=== PATIENT | female | born 1990 | race Caucasian/White ===

== ENCOUNTER 2017-10-01 22:40 | Emergency (ER) | payer OTHER ==
[~2017-10-01] VITALS: Ht 160 cm; Wt 74.0 kg
[~2017-10-01 22:40] MED LIST: MACR100C PO; SERO300T PO
[2017-10-01 22:42] VITALS: BP 135/74; PULSE 85; RESP 16; TEMP 98.8; O2SAT 100
--- NOTE | 2017-10-02 00:05 | PD ---
HPI Chief Complaint: Headache Time Seen by Provider: 23:56 Travel History International Travel<30 days: No Contact w/Intl Traveler<30days: No Traveled to known affect area: No History of Present Illness HPI The patient is a 27 year old female who presents to the [facility] emergency department with a history of a headache that began 2 months ago. It has been constant. It is located in the back of her head. It is a burning sensation. It waxes and wanes in severity. She denies any alleviating factors. She reports that it randomly seems to get worse at times It is randomly worse. She denies taking any pain medication on a regular basis and she reports that Tylenol and ibuprofen does not usually help for her pain. She reports that she has not been sleeping well recently. She denies having any other new recent stress. She denies having any recent fevers, cough, congestion , rhinorrhea, or sore throat. She denies having any one-sided weakness, slurred speech, dizziness, difficulty with word finding ability, or vision changes. She reports having nausea with the headache without vomiting. She reports that the headache has been making her agitated, quick to anger. The patient reports that the headache has now moved down into her upper neck. She denies having any neck stiffness associated with this. On review of systems, she denies having any chest pain, shortness of breath, new abdominal pain, diarrhea, urinary symptoms, or other neurologic symptoms. LMP: September 04. [facility] Past Medical History Narrative Medical The patient's past medical history is significant for scoliosis, bipolar disorder, pilonidal cyst drainage a month ago, kidney stones, chronic abdominal pain that she reports has been evaluated previously and diagnosed as related to stomach ulcers. Bipolar Disorder: Yes Depression: Yes Diminished Hearing: No Kidney Stones: Yes Musculoskeletal: Yes (SCOLIOSIS) Tetanus Vaccination: < 5 Years Influenza Vaccination: No ?: Not LMP: "TUBES TIED" - 09/04/17 : 1 Past Surgical History Narrative Surgical The patient's past surgical history is significant for left renal stent placed and removed, lithotripsy, x2. Section: Yes (08/26/13) Other Surgery: Yes (LEFT RENAL STENT X2/REMOVAL, LITHOTRIPSY) Social History Alcohol Use: Yes (RARE, NONE SINCE 11/25/13) Tobacco Use: No Substance Use: No Allergies-Medications (Allergen,Severity, Reaction): Coded Allergies: lurasidone (Verified Allergy, Unknown, 10/01/17) quetiapine (Verified Allergy, Unknown, 10/01/17) trazodone (Verified Allergy, Unknown, 10/01/17) ziprasidone (Verified Allergy, Unknown, 10/01/17) Reported Meds & Prescriptions Reported Meds & Active Scripts Active No Active Prescriptions or Reported Medications Review of Systems Except as stated in HPI: all other systems reviewed are Neg General / Constitutional: No: Fever Eyes: No: Visual changes HENT: Positive: Headaches, Neck Pain, No: Neck Stiffness Cardiovascular: No: Chest Pain or Discomfort Respiratory: No: Shortness of Breath Gastrointestinal: Positive: Nausea, No: Abdominal Pain Genitourinary: No: Dysuria Musculoskeletal: No: Pain Skin: No Rash Neurologic: Positive: Headache, No: Weakness, Focal Abnormalities, Change in Mentation, Slurred Speech, Sensory Disturbance Psychiatric: No: Depression Endocrine: No: Polydipsia Hematologic/Lymphatic: No: Easy Bruising Physical Exam Narrative General: The patient is a well-developed well-nourished female in no acute distress. Head and Neck exam: Head is normocephalic atraumatic. Eyes: EOMI, pupils are equal round and reactive to light. Ears: Tympanic membranes are pearly with a good cone of light, no erythema or exudate. Nose: Midline septum with pink mucous membranes Mouth: Dentition unremarkable. Moist mucus membranes. Posterior oropharynx is not erythematous. No tonsillar hypertrophy. Uvula midline. Airway patent. Neck: No palpable lymphadenopathy. No nuchal rigidity. No thyromegaly. Negative Brudzinski, negative Kernig sign. No spinous process tenderness to palpation. No step-off or crepitus. No erythema or ecchymosis. Cardiovascular: Regular rate and rhythm without murmurs, gallops, or rubs. Lungs: Clear to auscultation bilaterally. No wheezes, rhonchi, or rales. Abdomen: Soft, without tenderness to palpation in all 4 quadrants of the abdomen. No guarding, rebound, or rigidity. Normal bowel sounds are audible. No tenderness on palpation of McBurney's point. Extremities: No clubbing, cyanosis, or edema. 2+ pulses in all 4 extremities. No calf tenderness on palpation. Back: No spinous process tenderness to palpation. No costovertebral angle tenderness to palpation. Neurologic Exam: Grossly nonfocal. Skin Exam: No rash noted. Intact skin that is warm and dry. Data Data Last Documented VS Vital Signs Date Time Temp Pulse Resp B/P (MAP) Pulse Ox O2 Delivery O2 Flow Rate FiO2 10/02/17 00:43 18 100 Room Air 10/01/17 22:42 98.8 85 Orders Orders Complete Blood Count With Diff (10/02/17:09) Comprehensive Metabolic Panel (10/02/17 00:) C-Reactive Protein (Crp) (10/02/17 00:09) Lipase (10/02/17:) Magnesium (Mg) (10/02/17:) Thyroid Stimulating Hormone (10/02/17:09) Ct Brain W/O Iv Contrast(Rout) (10/02/17 00:09) Iv Access Insert/Monitor (10/02/17:) Ecg Monitoring (10/02/17:) Oximetry (10/02/17 00:09) Ed Urine Pregnancytest Poc (10/02/17 00:09) Sodium Chlor 0.9% 1000 Ml Inj (Ns 1000 M (10/02/17 00:15) Prochlorperazine Inj (Compazine Inj) (10/02/17 00:15) Ketorolac Inj (Toradol Inj) (10/02/17 00:15) Diphenhydramine Inj (Benadryl Inj) (10/02/17 00:15) Labs Laboratory Tests Test 10/02/17 00:05 White Blood Count 12.3 TH/MM3 Red Blood Count 4.53 MIL/MM3 Hemoglobin 12.9 GM/DL Hematocrit 39.5 % Mean Corpuscular Volume 87.2 FL Mean Corpuscular Hemoglobin 28.5 PG Mean Corpuscular Hemoglobin Concent 32.7 % Red Cell Distribution Width 15.6 % Platelet Count 287 TH/MM3 Mean Platelet Volume 9.4 FL Neutrophils (%) (Auto) 71.2 % Lymphocytes (%) (Auto) 21.5 % Monocytes (%) (Auto) 5.1 % Eosinophils (%) (Auto) 1.8 % Basophils (%) (Auto) 0.4 % Neutrophils # (Auto) 8.8 TH/MM3 Lymphocytes # (Auto) 2.6 TH/MM3 Monocytes # (Auto) 0.6 TH/MM3 Eosinophils # (Auto) 0.2 TH/MM3 Basophils # (Auto) 0.1 TH/MM3 CBC Comment DIFF FINAL Differential Comment Blood Urea Nitrogen 14 MG/DL Creatinine 0.65 MG/DL Random Glucose 117 MG/DL Total Protein 8.2 GM/DL Albumin 4.1 GM/DL Calcium Level 9.0 MG/DL Magnesium Level 2.1 MG/DL Alkaline Phosphatase 69 U/L Aspartate Amino Transf (AST/SGOT) 20 U/L Alanine Aminotransferase (ALT/SGPT) 35 U/L Total Bilirubin 0.4 MG/DL Sodium Level 140 MEQ/L Potassium Level 3.1 MEQ/L Chloride Level 107 MEQ/L Carbon Dioxide Level 23.5 MEQ/L Anion Gap 10 MEQ/L Estimat Glomerular Filtration Rate 109 ML/MIN C-Reactive Protein 0.59 MG/DL Lipase 172 U/L Thyroid Stimulating Hormone 3rd Gen 3.820 uIU/ML MDM Medical Decision Making Medical Screen Exam Complete: Yes Emergency Medical Condition: Yes Medical Record Reviewed: Yes Interpretation(s) Last Impressions Head CT 10/02/17 0009 Signed Impressions: Service Date/Time: Monday, October 02, 2017 00:55 - CONCLUSION: 1. No evidence of acute intracranial pathology. No masses are identified. Jhonny Caputo MD Differential Diagnosis Tension headache, versus migraine headache, versus intracranial hemorrhage, versus intracranial mass, versus meningitis, versus encephalitis Narrative Course During the course of the patients emergency department visit, the patients history, examination, and differential diagnosis were reviewed with the patient. The patient was placed on a playground monitor with oximetry and frequent blood pressure monitoring. The patient had IV access obtained and blood work sent for analysis. A CT scan of the brain has been ordered. Meningitis and encephalitis are unlikely as the patient is awake and alert with a GCS of 15 and has no nuchal rigidity on exam. The patient has also been afebrile. The patient was initially provided a cocktail for pain to include Toradol, Benadryl, Compazine, and a 1 L IV fluid bolus. The patients laboratory studies were reviewed and remarkable for a white count of 12.3, hemoglobin 12.9, platelets 2 8774.2 neutrophils, CMP is remarkable for potassium supplemented orally, glucose 1:15, C-reactive protein 0.59, lipase 72 , TSH 3.2. Radiology studies were reviewed and remarkable for a CT scan of the brain shows no evidence of acute intracranial abnormality. No masses are identified. The patient will be discharged home to follow-up with a local primary care physician. The patient was given a prescription for Fioricet patient's symptoms are most consistent with tension headache. The patient is instructed regarding the importance of getting at least 8 hours of sleep each night. The patient is resting comfortably and feels better, is alert and in no distress. The patients results and examination findings were discussed with the patient. The repeat examination is unremarkable and benign. The history, exam, diagnostic testing, and current condition do not suggest any significant pathology to warrant further testing, continued ED treatment, admission, or surgical evaluation at this point. The vital signs have been stable. The patient does not have uncontrollable pain, intractable vomiting, or other significant symptoms. The patient's condition is stable and appropriate for discharge. The patient will pursue further outpatient evaluation with a primary care physician or other designated or consulting physician as indicated in the discharge instructions. The patient expressed understanding and was agreeable with this plan. Diagnosis Primary Impression: Headache Qualified Codes: G44.229 - Chronic tension-type headache, not intractable Additional Impression: Elevated TSH Referrals: Gil Amado MD 2 days Patient Instructions: Acute Headache (ED), General Instructions, Hypothyroidism (ED) Additional Instructions: The patient was instructed regarding her elevated TSH. She was instructed to follow-up with a primary care physician for additional thyroid tests. She was given a copy of her TSH results. Med/Other Pt SpecificInfo: Prescription(s) given Scripts Mzejvrbgdr-Ndghsfuaxnagb-Qyoouuas (Fioricet) 50-300-40 Mg Cap 1 CAP PO Q6H Y for HEADACHE, #9 CAP 0 Refills Prov: Alicia Dorsey MD 10/02/17 Disposition: 01 DISCHARGE HOME Condition: Stable Alicia Dorsey MD Oct 02, 2017 00:05
[2017-10-02] MEDS ORDERED: SODIUM CHLOR 0.9% 1000 ML INJ 1,000 ML IV ONE (00:15)
[2017-10-02] MEDS ORDERED: KETOROLAC TROMETHAMINE 30 MG/ML (IVP) VIAL IV PUSH ONE (00:15)
[2017-10-02] MEDS ORDERED: diphenhydrAMINE HCL 50 MG/ML VIAL IV PUSH ONE (00:15)
[2017-10-02] MEDS ORDERED: PROCHLORPERAZINE INJ 10 MG/2 ML VIAL IV PUSH ONE (00:15)
[2017-10-02 00:40] LABS: AUTOMATED NEUTROPHIL # 8.8 TH/MM3 (1.8-7.7); BASOPHIL # 0.1 TH/MM3 (0-0.2); BASOPHIL % 0.4 % (0.0-2.0); EOSINOPHIL # 0.2 TH/MM3 (0-0.4); EOSINOPHIL % 1.8 % (0.0-4.0); HEMATOCRIT 39.5 % (35.0-46.0); HEMO FLAGS DIFF FINAL; LYMPH % 21.5 % (9.0-44.0); LYMPHOCYTE # 2.6 TH/MM3 (1.0-4.8); MEAN CELL VOLUME 87.2 FL (80.0-100.0); MEAN CORPUSCULAR HEMOGLOBIN 28.5 PG (27.0-34.0); MEAN CORPUSCULAR HGB CONC 32.7 % (32.0-36.0); MONO % 5.1 % (0.0-8.0); NEUT % 71.2 % (16.0-70.0); PLATELET COUNT 287 TH/MM3 (150-450); RED BLOOD COUNT 4.53 MIL/MM3 (4.00-5.30); RED CELL DISTRIBUTION WIDTH 15.6 % (11.6-17.2); WHITE BLOOD COUNT 12.3 TH/MM3 (4.0-11.0)
[2017-10-02 00:43] VITALS: RESP 18; O2SAT 100
[2017-10-02 01:11] LABS: ALT (GPT) 35 U/L (10-53); ANION GAP 10 MEQ/L (5-15); AST (GOT) 20 U/L (15-37); BICARBONATE 23.5 MEQ/L (21.0-32.0); BLOOD UREA NITROGEN 14 MG/DL (7-18); CHLORIDE 107 MEQ/L (98-107); GLOMERULAR FILTRATION RATE 109 ML/MIN (>89); MAGNESIUM 2.1 MG/DL (1.5-2.5); POTASSIUM 3.1 MEQ/L (3.5-5.1); SODIUM (NA) 140 MEQ/L (136-145)
--- NOTE | 2017-10-02 01:12 | RADRPT ---
EXAM DATE/TIME: 10/02/2017 00:55 [facility] COMPARISON: No previous studies available for comparison. INDICATIONS : Cephalgia for two months. RADIATION DOSE: 29.75 CTDIvol (mGy) MEDICAL HISTORY : None SURGICAL HISTORY : Tubal ligation. ENCOUNTER: Initial ACUITY: 2 months PAIN SCALE: 10/10 LOCATION: cranial TECHNIQUE: Multiple contiguous axial images were obtained of the head. Using automated exposure control and adj ustment of the mA and/or kV according to patient size, radiation dose was kept as low as reasonably a chievable to obtain optimal diagnostic quality images. DICOM format image data is available electro nically for review and comparison. FINDINGS: CEREBRUM: The ventricles are normal for age. No evidence of midline shift, mass lesion, hemorrhage or acute in farction. No extra-axial fluid collections are seen. POSTERIOR FOSSA: The cerebellum and brainstem are intact. The 4th ventricle is midline. The cerebellopontine angle i s unremarkable. EXTRACRANIAL: The visualized portion of the orbits is intact. SKULL: The calvaria is intact. No evidence of skull fracture. CONCLUSION: 1. No evidence of acute intracranial pathology. No masses are identified. Jhonny Caputo MD on October 02, 2017 at 1:10 Board Certified Radiologist. This report was verified electronically.
[2017-10-02 01:20] LABS: ALKALINE PHOSPHATASE 69 U/L (45-117); TOTAL BILIRUBIN ADULT 0.4 MG/DL (0.2-1.0)
[2017-10-02 01:30] VITALS: RESP 18
[2017-10-02] MEDS ORDERED: BUTA1CAP PO (02:28)
[2017-10-02] MEDS ORDERED: POTASSIUM CHLORIDE 20 MEQ CONTROLLED RELEASE TAB PO ONE (02:45)
== END 2017-10-02 03:25 | disposition home or self-care (01) ==
LOC: NEPE 22:40
DX: R51 Headache (principal); R11.0 Nausea; F31.9 Bipolar disorder, unspecified; F32.9 Major depressive disorder, single episode, unspecified; M41.9 Scoliosis, unspecified
CPT/HCPCS: 70450; 80053; 83690; 83735; 84443; 84703; 85025; 86140; 96361; 96374; 96375; 99285; J0780; J1200; J1885; J7030

== ENCOUNTER 2017-11-03 17:34 | Emergency (ER) | payer OTHER ==
[~2017-11-03] VITALS: Ht 160 cm; Wt 74.0 kg
[~2017-11-03 17:34] MED LIST changes: +BUTA1CAP PO; -MACR100C PO; -SERO300T PO
[2017-11-03 17:37] VITALS: BP 145/77; PULSE 93; RESP 22; TEMP 98.2; O2SAT 100
--- NOTE | 2017-11-03 18:29 | PD ---
HPI Chief Complaint: Abdominal Pain Time Seen by Provider: 17:54 Travel History International Travel<30 days: No Contact w/Intl Traveler<30days: No Traveled to known affect area: No History of Present Illness HPI The patient was seen and examined in the presence of the nurse. This patient complains of abdominal pain. Location is right upper quadrant. Severity is moderate. Duration is one month. It's intermittent. It's worse with eating. No alleviating factors. Denies fever. Has not had it evaluated. Rare alcohol use. PFSH Past Medical History Bipolar Disorder: Yes Depression: Yes Diminished Hearing: No Kidney Stones: Yes Musculoskeletal: Yes (SCOLIOSIS) ?: Not LMP: 10/05/17 : 1 Past Surgical History Section: Yes (08/26/13) Other Surgery: Yes (LEFT RENAL STENT X2/REMOVAL, LITHOTRIPSY) Social History Alcohol Use: Yes (RARE, NONE SINCE 11/25/13) Tobacco Use: No Substance Use: No Allergies-Medications (Allergen,Severity, Reaction): Coded Allergies: lurasidone (Verified Allergy, Unknown, 10/01/17) quetiapine (Verified Allergy, Unknown, 10/01/17) trazodone (Verified Allergy, Unknown, 10/01/17) ziprasidone (Verified Allergy, Unknown, 10/01/17) Reported Meds & Prescriptions Reported Meds & Active Scripts Active Fioricet (Xslankpett-Bcebxiygeuorb-Lypwwgiq) 50-300-40 Mg Cap 1 Cap PO Q6H PRN Review of Systems General / Constitutional: No: Fever Eyes: No: Visual changes HENT: No: Headaches Cardiovascular: No: Chest Pain or Discomfort Respiratory: No: Shortness of Breath Gastrointestinal: Positive: Nausea, Abdominal Pain Genitourinary: No: Dysuria Musculoskeletal: No: Pain Skin: No Rash Neurologic: No: Weakness Psychiatric: No: Depression Endocrine: No: Polydipsia Hematologic/Lymphatic: No: Easy Bruising Physical Exam Narrative GENERAL: Well-nourished, well-developed patient with abdominal pain. SKIN: Focused skin assessment reveals no rash and nodules. Skin is Warm and dry. HEAD: Atraumatic. Normocephalic. EYES: Pupils equal and round. No scleral icterus. No injection or drainage. ENT: No nasal bleeding or discharge. Mucous membranes pink and moist. NECK: Trachea midline. No JVD. CARDIOVASCULAR: Regular rate and rhythm. No murmur appreciated. RESPIRATORY: No accessory muscle use. Clear to auscultation. Breath sounds equal bilaterally. GASTROINTESTINAL: Abdomen soft, right upper quadrant is tender, nondistended. Hepatic and splenic margins not palpable. MUSCULOSKELETAL: No obvious deformities. No clubbing. No cyanosis. No edema. NEUROLOGICAL: Awake and alert. No obvious cranial nerve deficits. Motor grossly within normal limits. Normal speech. PSYCHIATRIC: Appropriate mood and affect; insight and judgment normal. Data Data Last Documented VS Vital Signs Date Time Temp Pulse Resp B/P (MAP) Pulse Ox O2 Delivery O2 Flow Rate FiO2 11/03/17 17:37 98.2 93 22 145/77 (99) 100 MDM Medical Decision Making Medical Screen Exam Complete: Yes Emergency Medical Condition: Yes Medical Record Reviewed: Yes Differential Diagnosis Cholecystitis, pancreatitis, biliary colic Narrative Course I have reviewed the patient's electronic medical record. Patient's been here for issues before Patient is right upper quadrant pain and tenderness suspicious for gallbladder disease. Abdominal pain workup has been ordered and will be checked out to the night physician Clinton Juares MD Nov 03, 2017 18:29
[2017-11-03] MEDS ORDERED: SODIUM CHLOR 0.9% 1000 ML INJ 1,000 ML IV SCH (18:30)
[2017-11-03] MEDS ORDERED: ONDANSETRON HCL 4 MG/2 ML VIAL IVP ONE (18:30)
[2017-11-03] MEDS ORDERED: SODIUM CHLORIDE 0.9% FLUSH 10 ML FLUSH IV FLUSH PRN (18:30)
[2017-11-03] MEDS ORDERED: MORPHINE SULFATE 4 MG/ML INJ IV PUSH ONE ×3 (18:30→22:30)
[2017-11-03 19:18] LABS: AUTOMATED NEUTROPHIL # 8.3 TH/MM3 (1.8-7.7); BASOPHIL % 0.2 % (0.0-2.0); EOSINOPHIL # 0.2 TH/MM3 (0-0.4); HEMATOCRIT 40.7 % (35.0-46.0); HEMO FLAGS DIFF FINAL; LYMPH % 14.7 % (9.0-44.0); LYMPHOCYTE # 1.5 TH/MM3 (1.0-4.8); MEAN CELL VOLUME 86.7 FL (80.0-100.0); MEAN CORPUSCULAR HEMOGLOBIN 29.3 PG (27.0-34.0); MEAN CORPUSCULAR HGB CONC 33.7 % (32.0-36.0); MONO % 3.8 % (0.0-8.0); NEUT % 79.3 % (16.0-70.0); PLATELET COUNT 293 TH/MM3 (150-450); RED BLOOD COUNT 4.69 MIL/MM3 (4.00-5.30); RED CELL DISTRIBUTION WIDTH 15.8 % (11.6-17.2); WHITE BLOOD COUNT 10.4 TH/MM3 (4.0-11.0)
[2017-11-03 19:32] LABS: APTT (PATIENT) 24.2 SEC (24.3-30.1); PROTHROMBIN TIME - PATIENT 10.3 SEC (9.8-11.6)
[2017-11-03] MEDS ORDERED: PROM25TA10 PO (19:44)
[2017-11-03] MEDS ORDERED: NORC5TAB PO (19:44)
--- NOTE | 2017-11-03 19:45 | PD ---
Physical Exam Date Seen by Provider: Nov 03, 2017 Narrative Care was assumed at 7 PM pending workup for right upper quadrant pain. GENERAL: Awake and alert and in no acute distress. SKIN: warm/dry. HEAD: Normocephalic. EYES: Pupils equal and round. No scleral icterus. No injection or drainage. ENT: No nasal bleeding or discharge. Mucous membranes pink and moist. NECK: Trachea midline. Full range of motion without pain.. CARDIOVASCULAR: Regular rate and rhythm. Heart sounds are normal. RESPIRATORY: No accessory muscle use. Clear to auscultation. Breath sounds equal bilaterally. GASTROINTESTINAL: Abdomen soft. Right upper quadrant tenderness. Bowel sounds present. Nondistended. MUSCULOSKELETAL: No obvious deformities. NEUROLOGICAL: Awake and alert. No obvious cranial nerve deficits. Motor grossly within normal limits. Normal speech. PSYCHIATRIC: Appropriate mood and affect; insight and judgment normal. Data Data Last Documented VS Vital Signs Date Time Temp Pulse Resp B/P (MAP) Pulse Ox O2 Delivery O2 Flow Rate FiO2 11/03/17 19:49 66 18 90/66 (74) 99 11/03/17 17:37 98.2 Orders Orders Beta Hcg (Quant/Titer) (11/03/17 18:30) Complete Blood Count With Diff (11/03/17 18:30) Comprehensive Metabolic Panel (11/03/17 18:30) Lipase (11/03/17 18:30) Prothrombin Time / Inr (Pt) (11/03/17 18:30) Act Partial Throm Time (Ptt) (11/03/17 18:30) Ct Abd/Pel W Iv Contrast(Rout) (11/03/17 18:30) Iv Access Insert/Monitor (11/03/17 18:30) Ecg Monitoring (11/03/17 18:30) NPO (11/03/17 18:30) Morphine Inj (Morphine Inj) (11/03/17 18:30) Ondansetron Inj (Zofran Inj) (11/03/17 18:30) Sodium Chlor 0.9% 1000 Ml Inj (Ns 1000 M (11/03/17 18:30) Sodium Chloride 0.9% Flush (Ns Flush) (11/03/17 18:30) Morphine Inj (Morphine Inj) (11/03/17 19:30) Iohexol 350 Inj (Omnipaque 350 Inj) (11/03/17 21:08) Labs Laboratory Tests Test 11/03/17 18:34 11/03/17 20:00 White Blood Count 10.4 TH/MM3 Red Blood Count 4.69 MIL/MM3 Hemoglobin 13.7 GM/DL Hematocrit 40.7 % Mean Corpuscular Volume 86.7 FL Mean Corpuscular Hemoglobin 29.3 PG Mean Corpuscular Hemoglobin Concent 33.7 % Red Cell Distribution Width 15.8 % Platelet Count 293 TH/MM3 Mean Platelet Volume 9.6 FL Neutrophils (%) (Auto) 79.3 % Lymphocytes (%) (Auto) 14.7 % Monocytes (%) (Auto) 3.8 % Eosinophils (%) (Auto) 2.0 % Basophils (%) (Auto) 0.2 % Neutrophils # (Auto) 8.3 TH/MM3 Lymphocytes # (Auto) 1.5 TH/MM3 Monocytes # (Auto) 0.4 TH/MM3 Eosinophils # (Auto) 0.2 TH/MM3 Basophils # (Auto) 0.0 TH/MM3 CBC Comment DIFF FINAL Differential Comment Prothrombin Time 10.3 SEC Prothromb Time International Ratio 1.0 RATIO Activated Partial Thromboplast Time 24.2 SEC Blood Urea Nitrogen 15 MG/DL Creatinine 0.59 MG/DL Random Glucose 92 MG/DL Total Protein 8.8 GM/DL Albumin 3.2 GM/DL Calcium Level 8.0 MG/DL Alkaline Phosphatase 80 U/L Aspartate Amino Transf (AST/SGOT) 13 U/L Alanine Aminotransferase (ALT/SGPT) 25 U/L Total Bilirubin 0.4 MG/DL Sodium Level 143 MEQ/L Potassium Level 3.9 MEQ/L Chloride Level 111 MEQ/L Carbon Dioxide Level 24.9 MEQ/L Anion Gap 7 MEQ/L Estimat Glomerular Filtration Rate 121 ML/MIN Lipase 152 U/L Human Chorionic Gonadotropin, Quant LESS THAN 1 MIU/ML MDM Supervised Visit with TONI: No Differential Diagnosis Differential diagnosis of abdominal pain includes but is not limited to gastritis, pancreatitis, hepatitis, gastroenteritis, gallbladder disease, constipation, urinary retention, UTI, peptic ulcer disease, diverticulitis or appendicitis Narrative Course This patient presents for the evaluation of intermittent right upper quadrant abdominal pain for the last month. Her pain has been worse today causing her to present to us for evaluation. She had been given morphine 4 mg IV prior to me assuming care. She reports that the morphine took the edge off the pain that she was still having a significant amount of pain. I ordered an additional 4 mg of morphine. The patient does report good pain control with the second dose of morphine. CBC Diagram 11/03/17 18:34 BMP Diagram 11/03/17 20:00 Total Protein 8.8 H, Albumin 3.2 L, Calcium Level 8.0 L, Alkaline Phosphatase 80 , Aspartate Amino Transf (AST/SGOT) 13 L, Alanine Aminotransferase (ALT/SGPT) 25 , Total Bilirubin 0.4 Last Impressions Abdomen/Pelvis CT 11/03/17 1830 Signed Impressions: Service Date/Time: Friday, November 03, 2017 21:04 - CONCLUSION: 1. Thickening of the small bowel in the right lower quadrant likely related to the distal ileum. This likely represents enteritis. The terminal ileum appears grossly normal. 2. Hepatic steatosis. 3. Possible 1-2 mm nonobstructing right renal stone versus early contrast enhancement in a minor calyx at the inferior right kidney. No hydronephrosis is seen. Steve Naranjo MD I will discharge her to home with instructions to follow-up with her primary care provider. She will be given prescriptions for Providence and Phenergan. Diagnosis Primary Impression: Abdominal pain Qualified Codes: R10.11 - Right upper quadrant pain Additional Impression: Enteritis Patient Instructions: Enteritis (DC), General Instructions, Narcotic given in the ED Med/Other Pt SpecificInfo: Prescription(s) given Scripts Promethazine (Phenergan) 25 Mg Tablet 25 MG PO Q6H Y for NAUSEA OR VOMITING, #12 TAB 0 Refills Prov: Stella Carranza MD 11/03/17 Hydrocodone-Acetaminophen (Prov[place]) 5 Mg-325 Mg Tab 1 TAB PO Q4H Y for PAIN, #12 TAB 0 Refills Prov: Stella Carranza MD 11/03/17 Disposition: 01 DISCHARGE HOME Condition: Stable Stella Carranza MD Nov 03, 2017 19:45
[2017-11-03 19:49] VITALS: BP 90/66; PULSE 66; RESP 18; O2SAT 99
[2017-11-03 19:59] LABS: ALKALINE PHOSPHATASE 80 U/L (45-117); BETA HCG QUANT LESS THAN 1 MIU/ML (0-5); TOTAL BILIRUBIN ADULT 0.4 MG/DL (0.2-1.0)
[2017-11-03] MEDS ORDERED: IOHEXOL 350 MG/ML 10 ML VIAL (for RAD DIAG) IVCONTRAST ONE (21:08)
--- NOTE | 2017-11-03 21:24 | RADRPT ---
EXAM DATE/TIME: 11/03/2017 21:04 [facility] COMPARISON: No previous studies available for comparison. INDICATIONS : Right upper quadrant pain with vomiting. IV CONTRAST: 95 cc Omnipaque 350 (iohexol) IV ORAL CONTRAST: No oral contrast ingested. RADIATION DOSE: 11.43 CTDIvol (mGy) MEDICAL HISTORY : Renal calculi. SURGICAL HISTORY : renal stents and lithotrypsy ENCOUNTER: Initial ACUITY: 1 day PAIN SCALE: 6/10 LOCATION: Right upper quadrant abdomen TECHNIQUE: Volumetric scanning of the abdomen and pelvis was performed. Using automated exposure control and ad justment of the mA and/or kV according to patient size, radiation dose was kept as low as reasonably achievable to obtain optimal diagnostic quality images. DICOM format image data is available electro nically for review and comparison. FINDINGS: LOWER LUNGS: The visualized lower lungs are clear. LIVER: There is decreased density seen throughout the liver. No focal hepatic lesion is seen. The gallbladde r is unremarkable. SPLEEN: Normal size without lesion. PANCREAS: Within normal limits. KIDNEYS: Normal in size and shape. There is a small 1-2 mm hyperdense focus at the right inferior collecting system likely related to a nonobstructing stone versus contrast in a minor calyx. This is only seen o n the coronal images. There is no hydronephrosis. There are 2 small subcentimeter hypodensities in th e right kidney likely representing cysts although they're nonspecific given their small size. ADRENAL GLANDS: Within normal limits. VASCULAR: There is no aortic aneurysm. BOWEL/MESENTERY: There is thickening of small bowel in the right lower quadrant and pelvic region likely the ileum. Th is extends over an approximate 15 cm in length. The terminal ileum appears normal. The colon is unrem arkable. ABDOMINAL WALL: Within normal limits. RETROPERITONEUM: There is no lymphadenopathy. BLADDER: No wall thickening or mass. REPRODUCTIVE: Within normal limits. INGUINAL: There is no lymphadenopathy or hernia. MUSCULOSKELETAL: Within normal limits for patient age. There is a dextrocurvature of the lumbar spine. CONCLUSION: 1. Thickening of the small bowel in the right lower quadrant likely related to the distal ileum. This likely represents enteritis. The terminal ileum appears grossly normal. 2. Hepatic steatosis. 3. Possible 1-2 mm nonobstructing right renal stone versus early contrast enhancement in a minor tiffani x at the inferior right kidney. No hydronephrosis is seen. Steve Naranjo MD on November 03, 2017 at 21:15 Board Certified Radiologist. This report was verified electronically.
[2017-11-03 22:05] LABS: ANION GAP 7 MEQ/L (5-15); AST (GOT) 13 U/L (15-37); BICARBONATE 24.9 MEQ/L (21.0-32.0); CHLORIDE 111 MEQ/L (98-107); GLOMERULAR FILTRATION RATE 121 ML/MIN (>89); SODIUM (NA) 143 MEQ/L (136-145)
[2017-11-03 22:06] LABS: ALT (GPT) 25 U/L (10-53)
[2017-11-03 22:14] LABS: BLOOD UREA NITROGEN 15 MG/DL (7-18); POTASSIUM 3.9 MEQ/L (3.5-5.1)
== END 2017-11-03 23:02 | disposition home or self-care (01) ==
LOC: NEPE 17:34
DX: K52.9 Noninfective gastroenteritis and colitis, unspecified (principal); K76.0 Fatty (change of) liver, not elsewhere classified; F31.9 Bipolar disorder, unspecified; M41.9 Scoliosis, unspecified; Z88.8 Allergy status to other drugs, medicaments and biological substances
CPT/HCPCS: 74177; 80053; 83690; 84702; 85025; 85610; 85730; 96374; 96375; 96376; 99285; J2270; J2405; J7030; Q9967

== ENCOUNTER 2017-11-22 16:24 | Emergency (ER) | payer OTHER ==
[~2017-11-22] VITALS: Ht 160 cm; Wt 72.5 kg
[~2017-11-22 16:24] MED LIST changes: -BUTA1CAP PO; +CLAR10CA3 PO; +IBUP1TAB7 PO; +PANT20TA2 PO
[2017-11-22 16:26] VITALS: BP 125/69; PULSE 118; RESP 20; TEMP 99.5; O2SAT 98
--- NOTE | 2017-11-22 18:15 | PD ---
HPI Chief Complaint: Cold / Flu Symptoms Time Seen by Provider: 18:02 Travel History International Travel<30 days: No Contact w/Intl Traveler<30days: No Traveled to known affect area: No History of Present Illness HPI The patient was seen and examined in the presence of the nurse. This patient complains of having a fever. Started yesterday. She doesn't have any specific symptoms to guide us to the cause of the fever. She has no sore throat or cough or runny nose or diarrhea etc. She is not having abdominal pain. Symptoms severity is mild. No alleviating factors. She does have history of multiple UTIs but no current urinary symptoms. PFSH Past Medical History Bipolar Disorder: Yes Depression: Yes Diminished Hearing: No Kidney Stones: Yes Musculoskeletal: Yes (SCOLIOSIS) ?: Unknown LMP: 11/22/17 : 1 Past Surgical History Section: Yes (08/26/13) Other Surgery: Yes (LEFT RENAL STENT X2/REMOVAL, LITHOTRIPSY) Social History Alcohol Use: Yes (RARE, NONE SINCE 11/25/13) Tobacco Use: No Substance Use: No Allergies-Medications (Allergen,Severity, Reaction): Coded Allergies: lurasidone (Verified Allergy, Unknown, 11/21/17) quetiapine (Verified Allergy, Unknown, 11/21/17) trazodone (Verified Allergy, Unknown, 11/21/17) ziprasidone (Verified Allergy, Unknown, 11/21/17) Reported Meds & Prescriptions Reported Meds & Active Scripts Active Claritin (Loratadine) 10 Mg Cap 10 Mg PO DAILY Ibuprofen 800 Mg Tab 800 Mg PO Q8H PRN Reported Pantoprazole (Pantoprazole Sodium) 20 Mg Tab 20 Mg PO DAILY Review of Systems General / Constitutional: Positive: Fever Eyes: No: Visual changes HENT: No: Headaches Cardiovascular: No: Chest Pain or Discomfort Respiratory: No: Shortness of Breath Gastrointestinal: No: Abdominal Pain Genitourinary: No: Dysuria Musculoskeletal: No: Pain Skin: No Rash Neurologic: No: Weakness Psychiatric: No: Depression Endocrine: No: Polydipsia Hematologic/Lymphatic: No: Easy Bruising Physical Exam Narrative GENERAL: Well-nourished, well-developed patient in no apparent distress. SKIN: Focused skin assessment reveals no rash and nodules. Skin is Warm and dry. HEAD: Atraumatic. Normocephalic. EYES: Pupils equal and round. No scleral icterus. No injection or drainage. ENT: No nasal bleeding or discharge. Mucous membranes pink and moist. NECK: Trachea midline. No JVD. CARDIOVASCULAR: Regular rate and rhythm. No murmur appreciated. RESPIRATORY: No accessory muscle use. Clear to auscultation. Breath sounds equal bilaterally. GASTROINTESTINAL: Abdomen soft, non-tender, nondistended. Hepatic and splenic margins not palpable. MUSCULOSKELETAL: No obvious deformities. No clubbing. No cyanosis. No edema. NEUROLOGICAL: Awake and alert. No obvious cranial nerve deficits. Motor grossly within normal limits. Normal speech. PSYCHIATRIC: Appropriate mood and affect; insight and judgment normal. Data Data Last Documented VS Vital Signs Date Time Temp Pulse Resp B/P (MAP) Pulse Ox O2 Delivery O2 Flow Rate FiO2 11/22/17 16:26 99.5 118 20 125/69 (87) 98 Room Air Orders Orders Electrocardiogram (11/22/17 ) Urinalysis - C+S If Indicated (11/22/17 18:11) Ed Discharge Order (11/22/17 19:42) Labs Laboratory Tests Test 11/22/17 18:24 Urine Color YELLOW Urine Turbidity CLEAR Urine pH 6.5 Urine Specific [place] 1.012 Urine Protein NEG mg/dL Urine Glucose (UA) NEG mg/dL Urine Ketones NEG mg/dL Urine Occult Blood NEG Urine Nitrite NEG Urine Bilirubin NEG Urine Urobilinogen LESS THAN 2.0 MG/DL Urine Leukocyte Esterase NEG Urine WBC 1 /hpf Urine Squamous Epithelial Cells 1 /hpf Microscopic Urinalysis Comment CULT NOT INDICATED MDM Medical Decision Making Medical Screen Exam Complete: Yes Emergency Medical Condition: Yes Medical Record Reviewed: Yes Differential Diagnosis UTI, flu syndrome, fever of unknown origin Narrative Course I have reviewed the patient's electronic medical record. Patient was here 2-3 weeks ago with abdominal pain and had CT scan showing some small bowel inflammation She has a soft nontender benign abdomen Exam is normal with no clues Temp 99 at this time Urinalysis is normal Stable for outpatient follow-up Diagnosis Primary Impression: Acute febrile illness Additional Instructions: The patient was advised to follow up with their physician and return if they worsen. Med/Other Pt SpecificInfo: Other Disposition: 01 DISCHARGE HOME Condition: Stable Clinton Juares MD Nov 22, 2017 18:15
[2017-11-22 19:38] LABS: BILIRUBIN, URINE NEG (NEG); BLOOD, URINE NEG (NEG); GLUCOSE,URINE NEG (NEG); KETONE, URINE NEG (NEG); NITRITE,URINE NEG (NEG); PH, URINE 6.5 (5.0-8.5); SQUAMOUS EPITHELIAL CELL URINE 1 /hpf (0-5); URINE COLOR YELLOW (YELLW/STRAW); URINE LEUKOCYTE ESTERASE NEG (NEG)
--- NOTE | 2017-11-24 13:36 | EKG ---
Date Performed: 11/22/2017 Time Performed: 17:28:24 PTAGE: 27 years EKG: SINUS TACHYCARDIA POSSIBLE RIGHT VENTRICULAR CONDUCTION DELAY NONSPECIFIC T-WAVE ABNORMALIT Y ST-T wave abnormality new from the prior tracing ABNORMAL RHYTHM ECG PREVIOUS TRACING : 10/02/2012 22.05 DOCTOR: Sinan Dorsey Interpretating Date/Time 11/24/2017 13:36:23
--- NOTE | 2017-11-26 14:20 | RADRPT ---
EXAM DATE/TIME: 11/22/2017 17:09 [facility] COMPARISON: No previous studies available for comparison. INDICATIONS : Chest pain and short of breath MEDICAL HISTORY : None. SURGICAL HISTORY : None. ENCOUNTER: Initial ACUITY: 1 day PAIN SCORE: 5/10 LOCATION: Bilateral chest FINDINGS: The lungs are clear without infiltrate, nodule, or mass. There is no appreciable pleural effusion fo r technique. Heart and mediastinum are unremarkable. Slight thoracolumbar scoliosis is seen. CONCLUSION: No acute cardiopulmonary disease. Tyrell Suarez MD on November 26, 2017 at 14:18 Board Certified Radiologist. This report was verified electronically.
== END 2017-11-22 21:59 | disposition home or self-care (01) ==
LOC: NEPD 16:24
DX: R50.9 Fever, unspecified (principal); R10.9 Unspecified abdominal pain; M41.9 Scoliosis, unspecified; R00.0 Tachycardia, unspecified; R94.31 Abnormal electrocardiogram [ECG] [EKG]; F31.9 Bipolar disorder, unspecified; Z87.442 Personal history of urinary calculi; Z79.899 Other long term (current) drug therapy; Z88.8 Allergy status to other drugs, medicaments and biological substances
CPT/HCPCS: 71020; 81001; 93005; 99285